=== PATIENT | female | born 2000 | race American Indian/Alaskan Native ===

== ENCOUNTER 2020-05-24 19:38 | Emergency (ER) | payer SELFPAY ==
[2020-05-24 20:35] LABS: Basophils # (Auto) 0.1 K/mm3 (0.0-0.1); Basophils % (Auto) 0.8 % (0.0-1.8); Eosinophils # (Auto) 0.1 K/mm3 (0.0-0.4); Hematocrit 31.2 % (30.3-42.9); Hemoglobin 10.6 gm/dl (10.1-14.3); Lymphocytes # (Auto) 1.7 K/mm3 (1.2-5.4); Lymphocytes % (Auto) 23.8 % (13.4-35.0); Mean Corpuscular HGB Conc 34 % (30-34); Mean Corpuscular Volume 83 fl (79-97); Monocytes # (Auto) 0.4 K/mm3 (0.0-0.8); Platelet Count 223 K/mm3 (140-440); Red Blood Count 3.74 M/mm3 (3.65-5.03); Red Cell Distribution Width 13.8 % (13.2-15.2)
[2020-05-24 20:58] LABS: Alanine Aminotransferase 11 units/L (7-56); Blood Urea Nitrogen 5 mg/dL (7-17); Calcium 8.9 mg/dL (8.4-10.2); Hemolysis Index 8
[2020-05-24 21:06] LABS: BUN/Creatinine Ratio 10
[2020-05-24 22:47] LABS: Bilirubin,Urine NEG (Negative); Blood,Urine NEG (Negative); Color,Urine Straw (Yellow); Protein,Urine <15 mg/dL mg/dL (Negative); Urobilinogen,Urine < 2.0 mg/dL (<2.0); WBC,Urine < 1.0 /HPF (0.0-6.0)
[2020-05-24 23:03] LABS: RBC,Urine < 1.0 /HPF (0.0-6.0)
[2020-05-25 00:11] VITALS: BP 113/67
--- NOTE | 2020-05-25 00:14 | Emergency Department Report ---
ED General Adult HPI - General Chief complaint: Abdominal Pain Stated complaint: CRAMPING PUI?: No Time Seen by Provider: 05/24/20 23:37 Source: patient Mode of arrival: Ambulatory Limitations: No Limitations - History of Present Illness Initial comments: This is a G0 20-year-old female with no prior medical history who presents the ED complaining of some cramping and stating that she hasnt gotten her menstrual cycle yet. Patient states her last menstrual cycle was 04/19/2020. Patient states she is concerned she she might be . Patient denies any vaginal discharge, vaginal bleeding, dysuria, nausea vomiting diarrhea or any other symptoms. - Related Data Allergies Allergy/AdvReac Type Severity Reaction Status Date / Time No Known Allergies Allergy Verified 05/24/20 20:10 ED Review of Systems ROS: Stated complaint: CRAMPING Other details as noted in HPI Comment: All other systems reviewed and negative ED Past Medical Hx - Past Medical History Previous Medical History?: No - Surgical History Past Surgical History?: No ED Physical Exam - General Limitations: No Limitations General appearance: alert, in no apparent distress - Head Head exam: Present: atraumatic, normocephalic - Eye Eye exam: Present: normal appearance - ENT ENT exam: Present: mucous membranes moist - Neck Neck exam: Present: normal inspection - Respiratory Respiratory exam: Present: normal lung sounds bilaterally. Absent: respiratory distress - Cardiovascular Cardiovascular Exam: Present: regular rate, normal rhythm. Absent: systolic murmur, diastolic murmur, rubs, gallop - GI/Abdominal GI/Abdominal exam: Present: soft, normal bowel sounds. Absent: distended, tenderness, guarding, rebound, mass - Extremities Exam Extremities exam: Present: normal inspection - Back Exam Back exam: Present: normal inspection. Absent: full ROM, CVA tenderness (R), CVA tenderness (L) - Neurological Exam Neurological exam: Present: alert, oriented X3 - Psychiatric Psychiatric exam: Present: normal affect, normal mood - Skin Skin exam: Present: warm, dry, intact, normal color. Absent: rash ED Course Vital Signs 05/24/20 05/25/20 20:10 00:28 Temperature 98.7 F Pulse Rate 86 88 Respiratory 16 17 Rate Blood Pressure 113/67 O2 Sat by Pulse 98 99 Oximetry ED Medical Decision Making - Lab Data Result diagrams: 05/24/20 20:20 05/24/20 20:20 Laboratory Last Values WBC 7.1 K/mm3 (4.5-11.0) 05/24/20 20:20 RBC 3.74 M/mm3 (3.65-5.03) 05/24/20 20:20 Hgb 10.6 gm/dl (10.1-14.3) 05/24/20 20:20 Hct 31.2 % (30.3-42.9) 05/24/20 20:20 MCV 83 fl (79-97) 05/24/20 20:20 MCH 28 pg (28-32) 05/24/20 20:20 MCHC 34 % (30-34) 05/24/20 20:20 RDW 13.8 % (13.2-15.2) 05/24/20 20:20 Plt Count 223 K/mm3 (140-440) 05/24/20 20:20 Lymph % (Auto) 23.8 % (13.4-35.0) 05/24/20 20:20 [place] % (Auto) 6.0 % (0.0-7.3) 05/24/20 20:20 Eos % (Auto) 2.0 % (0.0-4.3) 05/24/20 20:20 Baso % (Auto) 0.8 % (0.0-1.8) 05/24/20 20:20 Lymph # (Auto) 1.7 K/mm3 (1.2-5.4) 05/24/20 20:20 [place] # (Auto) 0.4 K/mm3 (0.0-0.8) 05/24/20 20:20 Eos # (Auto) 0.1 K/mm3 (0.0-0.4) 05/24/20 20:20 Baso # (Auto) 0.1 K/mm3 (0.0-0.1) 05/24/20 20:20 Seg Neutrophils % 67.4 % (40.0-70.0) 05/24/20 20:20 Seg Neutrophils # 4.8 K/mm3 (1.8-7.7) 05/24/20 20:20 Sodium 135 mmol/L (137-145) L 05/24/20 20:20 Potassium 3.4 mmol/L (3.6-5.0) L 05/24/20 20:20 Chloride 100.3 mmol/L (98-107) 05/24/20 20:20 Carbon Dioxide 20 mmol/L (22-30) L 05/24/20 20:20 Anion Gap 18 mmol/L 05/24/20 20:20 BUN 5 mg/dL (7-17) L 05/24/20 20:20 Creatinine 0.5 mg/dL (0.6-1.2) L 05/24/20 20:20 Estimated GFR > 60 ml/min 05/24/20 20:20 BUN/Creatinine Ratio 10 % 05/24/20 20:20 Glucose 105 mg/dL (65-100) H 05/24/20 20:20 Calcium 8.9 mg/dL (8.4-10.2) 05/24/20 20:20 Total Bilirubin 0.60 mg/dL (0.1-1.2) 05/24/20 20:20 AST 18 units/L (5-40) 05/24/20 20:20 ALT 11 units/L (7-56) 05/24/20 20:20 Alkaline Phosphatase 59 units/L (35-129) 05/24/20 20:20 Total Protein 7.5 g/dL (6.3-8.2) 05/24/20 20:20 Albumin 4.0 g/dL (3.9-5) 05/24/20 20:20 Albumin/Globulin Ratio 1.1 % 05/24/20 20:20 HCG, Qual Positive (Negative) 05/24/20 20:20 Urine Color Straw (Yellow) 05/24/20 22:10 Urine Turbidity Clear (Clear) 05/24/20 22:10 Urine pH 7.0 (5.0-7.0) 05/24/20 22:10 Ur Specific [place] 1.006 (1.003-1.030) 05/24/20 22:10 Urine Protein <15 mg/dl mg/dL (Negative) 05/24/20 22:10 Urine Glucose (UA) Neg mg/dL (Negative) 05/24/20 22:10 Urine Ketones Neg mg/dL (Negative) 05/24/20 22:10 Urine Blood Neg (Negative) 05/24/20 22:10 Urine Nitrite Neg (Negative) 05/24/20 22:10 Urine Bilirubin Neg (Negative) 05/24/20 22:10 Urine Urobilinogen < 2.0 mg/dL (<2.0) 05/24/20 22:10 Ur Leukocyte Esterase Neg (Negative) 05/24/20 22:10 Urine WBC (Auto) < 1.0 /HPF (0.0-6.0) 05/24/20 22:10 Urine RBC (Auto) < 1.0 /HPF (0.0-6.0) 05/24/20 22:10 U Epithel Cells (Auto) < 1.0 /HPF (0-13.0) 05/24/20 22:10 - Medical Decision Making This 20-year-old female presents to the ED wanting a test wanted to find out why her cycle was late. test was positive. Urinalysis negative. Labs within normal limits. I discussed results with the patient. I discussed with patient follow-up with [facility]. Vital signs are normal patient is in no acute distress. Patient understands instructions to follow-up. Discussed with patient to increase water intake 8 to 10 glasses of water per day. Discussed vitamins once daily. Critical care attestation.: If time is entered above; I have spent that time in minutes in the direct care of this critically ill patient, excluding procedure time. ED Disposition Clinical Impression: test positive Disposition: DC-01 TO HOME OR SELFCARE Is pt being admited?: No Does the pt Need Aspirin: No Condition: Stable Instructions: (ED), Abdominal Pain (ED) Additional Instructions: Make sure to follow up with the [facility] as discussed. If you have any worsening symptoms or develop new symptoms please return to ED immediately. Referrals: [facility] [Provider Group] - 3-5 Days [facility] [Provider Group] - 3-5 Days Forms: Work/School Release Form(ED) Time of Disposition: 00:16
== END 2020-05-25 00:28 | disposition home or self-care (01) ==
LOC: ED 19:38
DX: Z32.01 Encounter for pregnancy test, result positive (principal)
CPT/HCPCS: 36415; 80053; 81001; 84703; 85025; 99283